=== PATIENT | male | born 1965 | race Caucasian/White ===

== ENCOUNTER 2017-10-14 09:13 | Emergency (ER) | payer OTHER ==
[~2017-10-14] VITALS: Ht 182.9 cm; Wt 98.9 kg
[~2017-10-14 09:13] MED LIST: KEFLEX500 MG PO
[2017-10-14 09:16] VITALS: BP 144/89
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
== END 2017-10-14 10:02 ==
LOC: ERH 09:13
DX: S61.211A Laceration without foreign body of left index finger without damage to nail, initial encounter (principal); B20 Human immunodeficiency virus [HIV] disease; W27.0XXA Contact with workbench tool, initial encounter; Y92.9 Unspecified place or not applicable; Y93.9 Activity, unspecified
CPT/HCPCS: 90471; J2001